=== PATIENT | female | born 1975 | race Caucasian/White ===

== ENCOUNTER 2017-06-09 14:04 | Emergency (ER) | payer OTHER ==
[~2017-06-09] VITALS: Ht 172.7 cm; Wt 88.9 kg
[~2017-06-09 14:04] MED LIST: Docusate Sod/Senna PO; IBUP600 PO; PRENTAB16
--- NOTE | 2017-06-09 15:06 | PD ---
HPI Chief Complaint Abdominal pain Date Seen: Jun 09, 2017 Time Seen: 14:59 Travel History International Travel<30 Days: No Contact w/Intl Traveler<30Days: No Known Affected Area: No History of Present Illness HPI 42-year-old 3 para 2 at 28+ weeks gestation who comes today with several day history of upper abdominal pain. She has felt at times that this might be gas pain but was unrelieved by Tums and bland diet. She has not had any nausea or vomiting. The pain occurs randomly and lasts for a few seconds to a couple of minutes. She does not equate this to contraction pain. No dysuria hematuria or frequency. No change in her bowel habits. She has noticed a slight postprandial component to this pain. She has no acholic stools. No swelling, headache or visual change. History Past Medical History Medical History: Denies Significant Hx Obstetric History Obstetric History 2 prior term vaginal deliveries without complication Current care with Dr. Meadows has been uncomplicated. Past Surgical History Surgical History: No Previous Surgery Family History Family History: Negative Social History Alcohol Use: No Tobacco Use: No Substance Abuse: No Allergies-Medications (Allergen,Severity, Reaction): Coded Allergies: No Known Allergies (Verified , 08/30/15) Home Meds Reported Medications Vit W/ Ferrous Fumara ( Complete) Complete Tab 11/18/13 Discontinued Scripts [Docusate Sod/Senna] 1 TAB TAB No Conflict Check, 2 TAB PO Q12H Y for CONSTIPATION, #20 TAB 0 Refills Prov:Mylene Grimaldo 11/21/13 Ibuprofen (Motrin 600 Mg Tab) 600 Mg Tab, 600 MG PO Q6H Y for CRAMPING, #30 TAB 0 Refills Prov:Mylene Grimaldo 11/21/13 Review of Systems Except as stated in HPI: all other systems reviewed are Neg Physical Exam Narrative GENERAL: Well-nourished, well-developed patient. SKIN: Warm and dry. HEAD: Normocephalic and atraumatic. EYES: No scleral icterus. No injection or drainage. ENT: No nasal drainage noted. Mucous membranes pink. Airway patent. NECK: Supple, trachea midline. No JVD. ABDOMEN/GI: Abdomen soft, non-tender, bowel sounds present, no rebound, no guarding Gravid to [-] weeks size Fundal Height: [27-] GENITOURINARY: External Genitalia: intact and normal in appearance BUS glands: [Negative-] Cervix: [-] Dilatation: [Closed-] Effacement: [-Long] Station: [High-] Presentation: [-] Membranes: [intact ] Uterine Contractions: [None-] FHT's: Category: [-1] Baseline: [-] Reactive: [-] Variability: [-] Decels: [-] EXTREMITIES: No cyanosis or edema. BACK: Nontender without obvious deformity. No CVA tenderness. NEUROLOGICAL: Awake and alert. Motor and sensory grossly within normal limits. Five out of 5 muscle strength in all muscle groups. Normal speech. Data Data Vital Signs Reviewed: Yes MDM Medical Record Reviewed: Yes Narrative Course / MDM Assessment:-42year-old multipara at 28+ weeks gestation with probable mild gastritis Plan: Discussed relief measures including [id number] H2 blockers. We also discussed possibility of gallbladder related symptoms and low-fat diet was recommended. Warning signs for follow-up were reviewed. Diagnosis Diagnosis: Primary Impression: 28 weeks gestation of Additional Impression: Gastritis Disposition: 01 DISCHARGE HOME Condition: Good Sam Neuamnn MD Jun 09, 2017 15:06
== END 2017-06-09 15:26 | disposition home or self-care (01) ==
LOC: HOBED 14:04
DX: O99.613 Diseases of the digestive system complicating pregnancy, third trimester (principal); K29.70 Gastritis, unspecified, without bleeding; Z3A.28 28 weeks gestation of pregnancy
CPT/HCPCS: 59025

== ENCOUNTER 2017-07-30 09:26 | Emergency (ER) | payer OTHER ==
[~2017-07-30 09:26] MED LIST changes: -Docusate Sod/Senna PO; -IBUP600 PO
[2017-07-30 10:30] LABS: HEMATOCRIT 34.7 % (35.0-46.0); HEMOGLOBIN 12.1 GM/DL (11.6-15.3); MEAN CELL VOLUME 89.4 FL (80.0-100.0); MEAN CORPUSCULAR HEMOGLOBIN 31.3 PG (27.0-34.0); MEAN PLATELET VOLUME 9.5 FL (7.0-11.0); PLATELET COUNT 160 TH/MM3 (150-450); RED BLOOD COUNT 3.88 MIL/MM3 (4.00-5.30); RED CELL DISTRIBUTION WIDTH 12.6 % (11.6-17.2); WHITE BLOOD COUNT 6.9 TH/MM3 (4.0-11.0)
--- NOTE | 2017-07-30 10:48 | HHI.DCPOC ---
Discharge Care Plan Report Symptoms to Your Doctor -Temperature above 100.5 degrees -Redness, of incision or excessive or foul smelling drainage -Unusual pain or calf pain -Increased vaginal bleeding -Painful or difficulty urinating -Feelings of extreme sadness or anxiety after 2 weeks Goals to Promote Your Health * To prevent worsening of your condition and complications * To maintain your health at the optimal level Directions to Meet Your Goals Take your medications as prescribed Follow your dietary instruction Follow activity as directed Ensure plenty of rest for recovery Drink fluids for hydration Keep your appointments as scheduled Take your immunizations and boosters as scheduled If your symptoms worsen call your PCP, if no PCP go to Urgent Care Center or Emergency Room Smoking is Dangerous to Your Health. Avoid second hand smoke Call the 24-hour crisis hotline for domestic abuse at Jahaira Meadows MD July 30, 2017 10:48
[2017-07-30 10:53] LABS: BACTERIA, URINE RARE /hpf; BILIRUBIN, URINE NEG (NEG); BLOOD, URINE TRACE (NEG); GLUCOSE,URINE NEG (NEG); KETONE, URINE NEG (NEG); NITRITE,URINE NEG (NEG); SQUAMOUS EPITHELIAL CELL URINE 11 /hpf (0-5); URINE COLOR YELLOW (YELLW/STRAW); URINE LEUKOCYTE ESTERASE LARGE (NEG)
[2017-07-30 10:58] LABS: ALT (GPT) 15 U/L (10-53); AST (GOT) 14 U/L (15-37); BICARBONATE 22.6 MEQ/L (21.0-32.0); BLOOD UREA NITROGEN 6 MG/DL (7-18); CALCIUM 8.4 MG/DL (8.5-10.1); CHLORIDE 105 MEQ/L (98-107); CREATININE 0.57 MG/DL (0.50-1.00); GLOMERULAR FILTRATION RATE 117 ML/MIN (>89); GLUCOSE,RANDOM 79 MG/DL (74-106); SODIUM (NA) 137 MEQ/L (136-145)
[2017-07-30 11:00] LABS: ALKALINE PHOSPHATASE 120 U/L (45-117); TOTAL BILIRUBIN ADULT 0.3 MG/DL (0.2-1.0); TOTAL PROTEIN 6.8 GM/DL (6.4-8.2)
--- NOTE | 2017-07-30 11:14 | PD.OB.ANTE ---
Objective Lab & Micro Results Test 07/30/17 09:50 07/30/17 09:59 Urine Color YELLOW Urine Turbidity HAZY Urine pH 7.0 Urine Specific [place] 1.013 Urine Protein NEG mg/dL Urine Glucose (UA) NEG mg/dL Urine Ketones NEG mg/dL Urine Occult Blood TRACE Urine Nitrite NEG Urine Bilirubin NEG Urine Urobilinogen LESS THAN 2.0 MG/DL Urine Leukocyte Esterase LARGE Urine WBC 11 /hpf Urine Squamous Epithelial Cells 11 /hpf Urine Bacteria RARE /hpf Microscopic Urinalysis Comment CULTURE INDICATED Urine Random Creatinine 78 MG/DL Urine Random Total Protein 20 MG/DL Urine Protein/Creatinine Ratio 0.26 White Blood Count 6.9 TH/MM3 Red Blood Count 3.88 MIL/MM3 Hemoglobin 12.1 GM/DL Hematocrit 34.7 % Mean Corpuscular Volume 89.4 FL Mean Corpuscular Hemoglobin 31.3 PG Mean Corpuscular Hemoglobin Concent 35.0 % Red Cell Distribution Width 12.6 % Platelet Count 160 TH/MM3 Mean Platelet Volume 9.5 FL Blood Urea Nitrogen 6 MG/DL Creatinine 0.57 MG/DL Random Glucose 79 MG/DL Total Protein 6.8 GM/DL Albumin 3.0 GM/DL Calcium Level 8.4 MG/DL Uric Acid 2.9 MG/DL Alkaline Phosphatase 120 U/L Aspartate Amino Transf (AST/SGOT) 14 U/L Alanine Aminotransferase (ALT/SGPT) 15 U/L Total Bilirubin 0.3 MG/DL Sodium Level 137 MEQ/L Potassium Level 3.9 MEQ/L Chloride Level 105 MEQ/L Carbon Dioxide Level 22.6 MEQ/L Anion Gap 9 MEQ/L Estimat Glomerular Filtration Rate 117 ML/MIN Date/Time Source Procedure Growth Status 07/30/17 09:50 Urine Clean Catch Urine Culture Pending Received Physical Exam GENERAL: Well-nourished, well-developed patient. CARDIOVASCULAR: Regular rate and rhythm without murmurs, gallops, or rubs. RESPIRATORY: Breath sounds equal bilaterally. No accessory muscle use. ABDOMEN/GI: Abdomen soft, non-tender. Fundus: [-] GENITOURINARY: External Genitalia: intact and normal in appearance Cervix: [-] Dilatation: [-] Effacement: [-] Station: [-] Presentation: [-] Membranes: [-] Uterine Contractions: [-] FHT's: Category: [-] Baseline: [-] Reactive: [-] Variability: [-] Decels: [-] EXTREMITIES: No cyanosis or edema, non-tender, without signs of DVT. Assessment and Plan Assessment and Plan Impression: 35+ week IUP with mild elevation in BP 8/8 BPP in office [place] normal lfts normal strip today reactive MILD GESTATIONAL HYPERTENSION SAFE FOR DISCHARGE HOME NOW RETURN TO OFFICE MONDAY Jahaira Meadows MD July 30, 2017 11:14
--- NOTE | 2017-07-30 19:15 | PD ---
HPI Travel History International Travel<30 Days: No Contact w/Intl Traveler<30Days: No Known Affected Area: No Allergies-Medications (Allergen,Severity, Reaction): Coded Allergies: No Known Allergies (Verified , 08/30/15) Home Meds Reported Medications Vit W/ Ferrous Fumara ( Complete) Complete Tab 11/18/13 Data Data Orders Orders Vital Signs (Adult) .ON ADMISSION (07/30/17 10:10) ^ Labor Status (07/30/17 10:10) Urinalysis - C+S If Indicated (07/30/17 10:10) ^ Non Stress Test (07/30/17 10:10) Cbc No Diff, Includes Plts (07/30/17 10:10) Comprehensive Metabolic Panel (07/30/17 10:10) Uric Acid (07/30/17 10:10) Protein Creat Ratio, Random Ur (07/30/17 10:10) Attending Discharge Order (07/30/17 ) Urine Culture (07/30/17 09:50) Labs Laboratory Tests Test 07/30/17 09:50 07/30/17 09:59 Urine Color YELLOW Urine Turbidity HAZY Urine pH 7.0 Urine Specific [place] 1.013 Urine Protein NEG Urine Glucose (UA) NEG Urine Ketones NEG Urine Occult Blood TRACE Urine Nitrite NEG Urine Bilirubin NEG Urine Urobilinogen LESS THAN 2.0 Urine Leukocyte Esterase LARGE Urine WBC 11 Urine Squamous Epithelial Cells 11 Urine Bacteria RARE Microscopic Urinalysis Comment CULTURE INDICATED Urine Random Creatinine 78 Urine Random Total Protein 20 Urine Protein/Creatinine Ratio 0.26 White Blood Count 6.9 Red Blood Count 3.88 Hemoglobin 12.1 Hematocrit 34.7 Mean Corpuscular Volume 89.4 Mean Corpuscular Hemoglobin 31.3 Mean Corpuscular Hemoglobin Concent 35.0 Red Cell Distribution Width 12.6 Platelet Count 160 Mean Platelet Volume 9.5 Blood Urea Nitrogen 6 Creatinine 0.57 Random Glucose 79 Total Protein 6.8 Albumin 3.0 Calcium Level 8.4 Uric Acid 2.9 Alkaline Phosphatase 120 Aspartate Amino Transf (AST/SGOT) 14 Alanine Aminotransferase (ALT/SGPT) 15 Total Bilirubin 0.3 Sodium Level 137 Potassium Level 3.9 Chloride Level 105 Carbon Dioxide Level 22.6 Anion Gap 9 Estimat Glomerular Filtration Rate 117 Date/Time Source Procedure Growth Status 07/30/17 09:50 Urine Clean Catch Urine Culture Pending Received MDM Plan per Dr. Meadows, courtesy labs placed Diagnosis Diagnosis: Primary Impression: Pre-eclampsia affecting , antepartum Ruled Out: Reactive NST Disposition: 01 DISCHARGE HOME Condition: Stable Patient Instructions: General Instructions, Having Your Baby: The Labor Process (GEN), Preeclampsia (ED), Movement (ED) Additional Instructions: Follow up with Dr. Meadows on Monday08/01/17 Departure Forms: Tests/Procedures Juliette Nunez MD July 30, 2017 19:15
== END 2017-07-30 12:30 | disposition home or self-care (01) ==
LOC: HOBED 09:26
DX: O14.90 Unspecified pre-eclampsia, unspecified trimester (principal); R82.71 Bacteriuria; Z3A.00 Weeks of gestation of pregnancy not specified
CPT/HCPCS: 36415; 59025; 80053; 81001; 82570; 84156; 84550; 85027; 87086

== ENCOUNTER 2017-08-01 18:00 | Inpatient (IN) | payer OTHER ==
[~2017-08-01] VITALS: Ht 172.7 cm; Wt 91.0 kg
[2017-08-01] MEDS ORDERED: NS 1000 ML IV PRN (19:45)
[2017-08-01] MEDS ORDERED: NS 500 ML BOLUS IV PRN (19:45)
[2017-08-01] MEDS ORDERED: MINERAL OIL 10 ML VIAL TOPICAL PRN (19:45)
[2017-08-01] MEDS ORDERED: CITRIC ACID-SODIUM CITRATE LIQ 30 ML UDC PO SCH (19:45)
[2017-08-01] MEDS ORDERED: ONDANSETRON ODT 4 MG TAB PO PRN (19:45)
[2017-08-01] MEDS ORDERED: LIDOCAINE HCL 1% 50 ML VIAL INFIL PRN (19:45)
[2017-08-01] MEDS ORDERED: LACTATED RINGER'S 1000 ML BOLUS IV PRN (19:45)
[2017-08-01] MEDS ORDERED: LIDOCAINE HCL 1% 50 ML VIAL I-DERMAL PRN (19:45)
[2017-08-01] MEDS ORDERED: LACTATED RINGER'S 1000 ML INJ 1,000 ML IV SCH (20:00)
[2017-08-01] MEDS ORDERED: OXYTOCIN 30 UNITS 500ML PREMIX IV ONE (20:00)
[2017-08-01] MEDS ORDERED: DINOPROSTONE 10 MG INSERT-LEAVE FOR 12 HOURS VAGINAL ONE (20:30)
[2017-08-01] MEDS: LACTATED RINGER'S 1000 ML IV SCH (20:34)
[2017-08-01 20:56] LABS: BASOPHIL % 0.2 % (0.0-2.0); EOSINOPHIL # 0.1 TH/MM3 (0-0.4); EOSINOPHIL % 0.8 % (0.0-4.0); HEMATOCRIT 36.2 % (35.0-46.0); HEMOGLOBIN 12.5 GM/DL (11.6-15.3); LYMPH % 24.8 % (9.0-44.0); LYMPHOCYTE # 2.1 TH/MM3 (1.0-4.8); MEAN CELL VOLUME 89.8 FL (80.0-100.0); MEAN CORPUSCULAR HEMOGLOBIN 31.2 PG (27.0-34.0); MEAN CORPUSCULAR HGB CONC 34.7 % (32.0-36.0); MEAN PLATELET VOLUME 9.7 FL (7.0-11.0); MONO % 4.8 % (0.0-8.0); MONOCYTE # 0.4 TH/MM3 (0-0.9); NEUT % 69.4 % (16.0-70.0); PLATELET COUNT 175 TH/MM3 (150-450); RED BLOOD COUNT 4.03 MIL/MM3 (4.00-5.30); RED CELL DISTRIBUTION WIDTH 12.3 % (11.6-17.2); WHITE BLOOD COUNT 8.6 TH/MM3 (4.0-11.0)
[2017-08-01] MEDS ORDERED: diphenhydrAMINE HCL 25 MG CAP PO PRN (21:00)
[2017-08-01 21:04] LABS: BILIRUBIN, URINE NEG (NEG); BLOOD, URINE MOD (NEG); GLUCOSE,URINE NEG (NEG); KETONE, URINE 10 mg/dL (NEG); MUCUS URINE FEW /lpf (OCC); NITRITE,URINE NEG (NEG); PH, URINE 5.5 (5.0-8.5); SQUAMOUS EPITHELIAL CELL URINE 2 /hpf (0-5); URINE COLOR LIGHT-YELLOW (YELLW/STRAW); URINE LEUKOCYTE ESTERASE MOD (NEG)
[2017-08-01 22:04] LABS: AST (GOT) 17 U/L (15-37); BICARBONATE 23.4 MEQ/L (21.0-32.0); BLOOD UREA NITROGEN 9 MG/DL (7-18); CALCIUM 8.9 MG/DL (8.5-10.1); CHLORIDE 103 MEQ/L (98-107); CREATININE 0.78 MG/DL (0.50-1.00); GLOMERULAR FILTRATION RATE 81 ML/MIN (>89); GLUCOSE,RANDOM 127 MG/DL (74-106); SODIUM (NA) 135 MEQ/L (136-145)
[2017-08-01 22:05] LABS: ALT (GPT) 16 U/L (10-53)
[2017-08-01 22:07] LABS: ALKALINE PHOSPHATASE 127 U/L (45-117); TOTAL BILIRUBIN ADULT 0.3 MG/DL (0.2-1.0); TOTAL PROTEIN 6.7 GM/DL (6.4-8.2)
[2017-08-02] MEDS ORDERED: ZANT150T2 PO (03:06)
[2017-08-02] MEDS ORDERED: PREN1TAB30 PO (03:06)
--- NOTE | 2017-08-02 07:46 | HHI.HP ---
HPI Chief Complaint 36 03/12 with gestation hypertension; possible pre eclampsia without severe features Date Seen: August 02, 2017 Time Seen: 07:39 Travel History International Travel<30 Days: No Contact w/Intl Traveler<30Days: No Known Affected Area: No History of Present Illness HPI 42 yo mwf with LMP 11/23/16 and EDC 08/30/17 sent to [facility] last evening for cervidil due to persistent elevation in BP. Highest today at 150/100. Had headaches today and emesis in the am and reports visual spots. surveillance entirely reassuring with GFM. No leaking or bleeding. No UCs yet. PNC uneventful She is proven to 9 pounds 2 ounces. O=/ Hgb11.2; glucola 121/ rubella and VZ immune; serology negative. NIPT reassuring Weeks Gestation: 36 Para: 2 : 3 History Past Medical History Medical History: Denies Significant Hx Obstetric History Obstetric History two term SVDs with second child 9 pounds 2 ounces Past Surgical History Surgical History: No Previous Surgery Family History Family History: Negative Social History Alcohol Use: No Tobacco Use: No Substance Abuse: No Allergies-Medications (Allergen,Severity, Reaction): Coded Allergies: No Known Allergies (Verified , 08/30/15) Home Meds Reported Medications Ranitidine (Zantac) 150 Mg Tab, 150 MG PO DAILY for Reduce Stomach Acid, #30 TAB 0 Refills 08/02/17 Vit W/ Ferrous Fumara ( Vitamin 27-0.8 mg) 27 Mg Iron-800 Mcg Tab, PO DAILY 08/02/17 Vit W/ Ferrous Fumara ( Complete) Complete Tab 11/18/13 Review of Systems Eyes: Blurred Vision HENT: Headaches Gastrointestinal: Nausea, Vomiting Physical Exam Narrative GENERAL: Well-nourished, well-developed patient. Very edematous SKIN: Warm and dry. HEAD: Normocephalic and atraumatic. EYES: No scleral icterus. No injection or drainage. ENT: No nasal drainage noted. Mucous membranes pink. Airway patent. NECK: Supple, trachea midline. No JVD. CARDIOVASCULAR: Regular rate and rhythm without murmurs, gallops, or rubs. RESPIRATORY: Breath sounds equal bilaterally. No accessory muscle use. BREASTS: Bilateral exam showed no masses , no retractions, no nipple discharge. ABDOMEN/GI: Abdomen soft, non-tender, bowel sounds present, no rebound, no guarding FH 37 cervix posterior. long, finger tip before and after 12 hours of cervidil EXTREMITIES: No cyanosis. 2+ edema. BACK: Nontender without obvious deformity. No CVA tenderness. NEUROLOGICAL: Awake and alert. Motor and sensory grossly within normal limits. Five out of 5 muscle strength in all muscle groups. Normal speech. Caprini VTE Risk Assessment Caprini VTE Risk Assessment: No/Low Risk (score <= 1) Caprini Risk Assessment Model Point Value = 1 Point Value = 2 Point Value = 3 Point Value = 5 Age 41-60 Minor surgery BMI > 25 kg/m2 Swollen legs Varicose veins or History of unexplained or recurrent spontaneous Oral contraceptives or hormone replacement Sepsis (< 1 month) Serious lung disease, including pneumonia (< 1 month) Abnormal pulmonary function Acute myocardial infarction Congestive heart failure (< 1 month) History of inflammatory bowel disease Medical patient at bed rest Age 61-74 Arthroscopic surgery Major open surgery (> 45 min) Laparoscopic surgery (> 45 min) Malignancy Confined to bed (> 72 hours) Immobilizing plaster cast Central venous access Age >= 75 History of VTE Family history of VTE Factor V Leiden Prothrombin [id number] Lupus anticoagulant Anticardiolipin antibodies Elevated serum homocysteine Heparin-induced thrombocytopenia Other congenital or acquired thrombophilia Stroke (< 1 month) Elective arthroplasty Hip, pelvis, or leg fracture Acute spinal cord injury (< 1 month) Prophylaxis Regimen Total Risk Factor Score Risk Level Prophylaxis Regimen 0-1 Low Early ambulation 2 Moderate Order ONE of the following: *Sequential Compression Device (SCD) *Heparin 5000 units SQ BID 3-4 Higher Order ONE of the following medications: *Heparin 5000 units SQ TID *Enoxaparin/Lovenox 40 mg SQ daily (WT < 150 kg, CrCl > 30 mL/min) *Enoxaparin/Lovenox 30 mg SQ daily (WT < 150 kg, CrCl > 10-29 mL/min) *Enoxaparin/Lovenox 30 mg SQ BID (WT < 150 kg, CrCl > 30 mL/min) AND/OR *Sequential Compression Device (SCD) 5 or more Highest Order ONE of the following medications: *Heparin 5000 units SQ TID (Preferred with Epidurals) *Enoxaparin/Lovenox 40 mg SQ daily (WT < 150 kg, CrCl > 30 mL/min) *Enoxaparin/Lovenox 30 mg SQ daily (WT < 150 kg, CrCl > 10-29 mL/min) *Enoxaparin/Lovenox 30 mg SQ BID (WT < 150 kg, CrCl > 30 mL/min) AND *Sequential Compression Device (SCD) Data Data Orders Orders Diet Regular Basic (08/01/17 Dinner) Admit To Inpatient (08/01/17 ) ^ Labor Induction (08/01/17 19:17) ^ Vaginal Insert (08/01/17 19:17) ^ Vaginal Lavage (08/01/17 19:17) Heart (08/01/17 19:17) Admit To Inpatient (08/01/17 ) Vital Signs (Adult) .Per protocol (08/01/17 19:18) Heart (08/01/17 19:18) Amnioinfusion (08/01/17 19:18) Urinary Catheter Management .ONCE (08/01/17 19:18) Complete Blood Count With Diff (08/01/17 19:18) Hold Clot (08/01/17 19:18) Abo/Rh Blood Type (08/01/17 19:18) Urinalysis - C+S If Indicated (08/01/17 19:18) Ob/Psych Drug Screen, Urine (08/01/17 19:18) Resp Oxygen Non Rebreathe Mask (08/01/17 ) ^ Epidural / Intrathecal Infus (08/01/17 19:18) Dinoprostone Vag Insert (Cervidil Vag In (08/01/17 20:30) Lactated Ringer's 1000 Ml Inj (Lr 1000 M (08/01/17 20:00) Lactated Ringer's 1000 Ml Inj (Lr 1000 M (08/01/17 20:00) Lactated Ringer's 1000 Ml Inj (Lr 1000 M (08/01/17 19:45) Sodium Chlorid 0.9% 500 Ml Inj (Ns 500 M (08/01/17 19:45) Sodium Chlor 0.9% 1000 Ml Inj (Ns 1000 M (08/01/17 19:45) Lidocaine 1% Inj (50 Ml) (Xylocaine 1% I (08/01/17 19:45) Citric Acid-Sodium Citrate Liq (Bicitra (08/01/17 19:45) Ondansetron Odt (Zofran Odt) (08/01/17 19:45) Fentanyl Inj (Fentanyl Inj) (08/01/17 19:45) Fentanyl Inj (Fentanyl Inj) (08/01/17 19:45) Oxytocin 30 Units-500ml Premix (Pitocin (08/01/17 20:00) Lidocaine 1% Inj (50 Ml) (Xylocaine 1% I (08/01/17 19:45) Light Mineral Oil (Muri-Lube Oil) (08/01/17 19:45) Comprehensive Metabolic Panel (08/01/17 21:21) Diphenhydramine (Benadryl) (08/01/17 21:00) Labs Laboratory Tests Test 08/01/17 18:30 08/01/17 20:20 Urine Color LIGHT-YELLOW Urine Turbidity CLEAR Urine pH 5.5 Urine Specific [place] 1.006 Urine Protein NEG Urine Glucose (UA) NEG Urine Ketones 10 Urine Occult Blood MOD Urine Nitrite NEG Urine Bilirubin NEG Urine Urobilinogen LESS THAN 2.0 Urine Leukocyte Esterase MOD Urine RBC LESS THAN 1 Urine WBC 3 Urine Squamous Epithelial Cells 2 Urine Mucus FEW Microscopic Urinalysis Comment CULT NOT INDICATED Urine Opiates Screen NEG Urine Barbiturates Screen NEG Urine Amphetamines Screen NEG Urine Benzodiazepines Screen NEG Urine Cocaine Screen NEG Urine Cannabinoids Screen NEG White Blood Count 8.6 Red Blood Count 4.03 Hemoglobin 12.5 Hematocrit 36.2 Mean Corpuscular Volume 89.8 Mean Corpuscular Hemoglobin 31.2 Mean Corpuscular Hemoglobin Concent 34.7 Red Cell Distribution Width 12.3 Platelet Count 175 Mean Platelet Volume 9.7 Neutrophils (%) (Auto) 69.4 Lymphocytes (%) (Auto) 24.8 Monocytes (%) (Auto) 4.8 Eosinophils (%) (Auto) 0.8 Basophils (%) (Auto) 0.2 Neutrophils # (Auto) 6.0 Lymphocytes # (Auto) 2.1 Monocytes # (Auto) 0.4 Eosinophils # (Auto) 0.1 Basophils # (Auto) 0.0 CBC Comment DIFF FINAL Differential Comment Blood Urea Nitrogen 9 Creatinine 0.78 Random Glucose 127 Total Protein 6.7 Albumin 3.0 Calcium Level 8.9 Alkaline Phosphatase 127 Aspartate Amino Transf (AST/SGOT) 17 Alanine Aminotransferase (ALT/SGPT) 16 Total Bilirubin 0.3 Sodium Level 135 Potassium Level 3.2 Chloride Level 103 Carbon Dioxide Level 23.4 Anion Gap 9 Estimat Glomerular Filtration Rate 81 Assessment/Plan Assessment and Plan BP this ami 130.90 and feels well will allow shower and breakfast and then oral cytotec with re evaluation in 6 hours anticipate once cervix ripened and pre eclampsia is not severe in nature Jahaira Meadows MD August 02, 2017 07:46
[2017-08-02] MEDS ORDERED: MISOPROSTOL 100 MCG TAB PO ONE (08:00)
[2017-08-02] MEDS ORDERED: MISOPROSTOL 25 MCG TAB PO ONE ×2 (09:15→14:00)
[2017-08-02] MEDS: LACTATED RINGER'S 1000 ML IV SCH ×2 (13:57→19:37)
--- NOTE | 2017-08-02 18:47 | PD.LABORPN ---
Subjective Subjective has been comfortable throughout day with oral/buccal cytotech with only minor cervical change (now thinner and 1 cm and more anterior)\ mild FLORES no Nausea or vomiting BPs 130s/80s labs reassuring strip category 1 Objective Objective Pelvic Exam: Cervix: [-] Dilatation: [-] Effacement: [-] Station: [-] Presentation: [-] Membranes: [intact or ruptured] Uterine Contractions: [-] FHT's: Category: [-] Baseline: [-] Reactive: [-] Variability: [-] Decels: [-] Weeks Gestation: 36 Assessment/Plan Assessment and Plan anticipate cervical change to occur during evening and night with buccal cytotec will rupture when able to anticipate Jahaira Meadows MD August 02, 2017 18:47
[2017-08-02] MEDS ORDERED: MISOPROSTOL 100 MCG TAB PO SCH (20:00)
[2017-08-02] MEDS ORDERED: ZOLPIDEM TARTRATE 5 MG TAB PO SCH (21:00)
[2017-08-03] MEDS ORDERED: MISOPROSTOL 100 MCG TAB PO SCH ×2
--- NOTE | 2017-08-03 00:59 | PD.LABORPN ---
Subjective Subjective resting comfortably while continuing buccal cytotec bedside sono confirms cephalic now 1-2 cm 40% effaced and anterior arom clear strip reactive mild ucs on strip. continue cytotec for now. Objective Objective Pelvic Exam: Cervix: [-] Dilatation: [-] Effacement: [-] Station: [-] Presentation: [-] Membranes: [intact or ruptured] Uterine Contractions: [-] FHT's: Category: [-] Baseline: [-] Reactive: [-] Variability: [-] Decels: [-] Weeks Gestation: 36 Jahaira Meadows MD August 03, 2017 00:59
[2017-08-03] MEDS: MISOPROSTOL 25 MCG TAB OTHER SCH ×5 (01:01→16:00)
[2017-08-03] MEDS: LACTATED RINGER'S 1000 ML IV SCH ×2 (05:25→09:29)
[2017-08-03] MEDS ORDERED: OXYTOCIN 30 UNITS/NS 500ML PREMIX IV PRN (07:15)
--- NOTE | 2017-08-03 11:27 | PD.LABORPN ---
Subjective Subjective pain 5/10 on birthing ball Objective Objective Pelvic Exam: 3/75%/-1 anterior strip category one UCs every 3 minutes Weeks Gestation: 36 Assessment/Plan Assessment and Plan anticipate Jahaira Meadows MD August 03, 2017 11:27
[2017-08-03] MEDS ORDERED: DEXAMETHASONE SOD PHOS 4 MG/ML VIAL IV ONE (12:00)
[2017-08-03] MEDS ORDERED: LIDOCAINE 2%/EPINEPHrine PF 1:200,000 20ML SDV OTHER ONE (12:00)
[2017-08-03] MEDS ORDERED: PHENYLEPH/NS 1000 MCG/10 ML SYR IV ONE (12:00)
[2017-08-03] MEDS ORDERED: ONDANSETRON HCL 4 MG/2 ML VIAL IV ONE (12:00)
[2017-08-03] MEDS ORDERED: ceFAZolin INJ 1,000 MG VIAL IV ONE (12:00)
[2017-08-03] MEDS ORDERED: OXYTOCIN 10 UNIT/ML AMP IV ONE (12:00)
[2017-08-03] MEDS ORDERED: fentaNYL 2MCG-BUPIV 0.125% INJ 150 ML EPIDURAL ONE (12:49)
[2017-08-03] MEDS ORDERED: ePHEDrine/NS 25 MG/5 ML SYRINGE ONE (12:50)
[2017-08-03] MEDS ORDERED: LIDOCAINE 1.5%/EPINEPHrine 1:200,000 PF 5 ML AMP ONE (13:13)
[2017-08-03] MEDS ORDERED: DO NOT ADMINISTER ANTICOAGULANTS PRN (14:30)
[2017-08-03] MEDS ORDERED: ePHEDrine/NS 25 MG/5 ML SYRINGE IV PUSH PRN (14:30)
[2017-08-03] MEDS ORDERED: fentaNYL 2MCG-BUPIV 0.125% 150 ML EPIDURAL PRN (14:30)
[2017-08-03] MEDS ORDERED: NO SYSTEM NARCOTICS PRN (14:30)
[2017-08-03] MEDS ORDERED: ACETAMINOPHEN 325 MG TAB PO PRN ×2 (17:45→21:30)
[2017-08-03] MEDS ORDERED: ceFAZolin 1,000 MG/NS 100 ML IV SCH ×2 (18:00)
[2017-08-03] MEDS ORDERED: MORPHINE SULFATE PF 5 MG/10 ML VIAL ONE (21:10)
--- NOTE | 2017-08-03 21:12 | PD.LABORPN ---
Subjective Subjective resting quietly epidural working well O2 on strip has lost BTBV and accelerations no decelerations UCs appear and palpate adequate since noon with no descent and minimal cervical change low grade temp on Ancef now Objective Vital Signs Vital Signs Date Time Temp Pulse Resp B/P (MAP) Pulse Ox O2 Delivery O2 Flow Rate FiO2 08/03/17 19:00 18 08/03/17 16:13 16 Objective Weeks Gestation: 36 Assessment/Plan Assessment and Plan reviewed lack of descent oncoming infection tired baby Will proceed with section risks benefits and expectations discussed Jahaira Meadows MD August 03, 2017 21:12
[2017-08-03] MEDS ORDERED: ACETAMINOPHEN 1000 MG/100 ML 100 ML IV ONE ×2 (21:30→22:07)
[2017-08-03] MEDS ORDERED: SODIUM CHLORIDE 0.9% FLUSH 10 ML FLUSH IV FLUSH PRN (21:30)
[2017-08-03] MEDS ORDERED: OXYTOCIN 30 UNITS-500ML PREMIX 500 ML IV ONE (21:30)
[2017-08-03] MEDS ORDERED: ZOLPIDEM TARTRATE 5 MG TAB PO PRN (21:30)
[2017-08-03] MEDS ORDERED: SIMETHICONE 80 MG CHEWABLE TAB PO PRN (21:30)
[2017-08-03] MEDS ORDERED: LIDOCAINE 1.5%/EPINEPHrine 1:200,000 PF SOLN 10ML SDV ONE (21:43)
[2017-08-03] MEDS ORDERED: ONDANSETRON ODT 4 MG TAB PO PRN (21:45)
[2017-08-03] MEDS ORDERED: fentaNYL CITRATE 250 MCG/5 ML AMP ONE (22:08)
[2017-08-03] MEDS ORDERED: ceFAZolin 2 GM PREMIX 50 ML IV SCH (22:15)
--- NOTE | 2017-08-03 22:28 | PD.OB.DELI ---
Procedure Note Section Procedure Pre Op Diagnosis: (1) Pre-eclampsia affecting , antepartum Post Op Diagnosis: (1) Failure of descent in labor, delivered, current hospitalization (2) delivery delivered Performed by Jahaira Meadows Procedure: Primary Low Transverse Sec Indication for delivery: malposition Informed consent obtained: For anesthesia, For procedure Confirmed correct: Patient, Procedure, Site, Time-out taken Anesthesia: Epidural Medication prior to procedure: As documented in eMAR Monitoring during procedure: Blood pressure monitoring, campus monitor Urinary catheter: Inserted using sterile technique, To dependent drainage Sterile preparation: Duraprep, In usual fashion, With 2% chlorexidine ( Hibiclens) Position: Supine with wedge to right side Operative Features Skin Incision: Pfannenstiel Uterine Incision: Low transverse w/knife / blunt ext Membranes Ruptured: Artificially Presentation: Occiput anterior, Occiput posterior, Vertex Delivery date: August 03, 2017 Delivery time: 22:27 Delivery of : Assisted : Male One Minute : 8 Five Minute : 8 Weight: 6 14 Status of infant: Viable, Cord blood, Umbilical cord, Nursery present Placenta delivered: Intact Medications: Antibiotics, Oxytocin Estimated blood loss: 400 Procedure tolerated: Well Maternal Condition: Stable (dictated) Condition: Stable Jahaira Meadows MD August 03, 2017 22:28
[2017-08-03] MEDS ORDERED: CITRIC ACID-SODIUM CITRATE LIQ 30 ML UDC PO SCH (22:45)
--- NOTE | 2017-08-03 23:02 | MP ---
cc: Jahaira Meadows MD, Pamela P MD DATE OF OPERATION: 08/03/2017 PREOPERATIVE DIAGNOSIS: Thirty six weeks, brought in for cervical ripening and induction for preeclampsia without severe features, trial of labor with lack of descent and nonreassuring strip. POSTOPERATIVE DIAGNOSIS: Thirty six weeks, brought in for cervical ripening and induction for preeclampsia without severe features, trial of labor with lack of descent and nonreassuring strip. Delivery, baby ROP. PROCEDURE PERFORMED: Primary low transverse segment section. ANESTHESIA: Epidural with Duramorph. SURGEON: Jahaira Meadows MD ANESTHESIA ASSISTANT: Hospital staff. FINDINGS: A male infant was delivered from OP/OT position with no nuchal cord. He weighed 6 pounds 13 ounces. Placenta was anterior and low lying. Infant looked like he may have had some weight loss in the last week or so with a small abdominal circumference and a larger than average head. He had a good cry on the abdomen, but then required some oxygen and is going to be watched in the NICU overnight. ESTIMATED BLOOD LOSS: Average. COUNTS: Sponge, instrument and needle counts were correct. Mom and baby are doing well. DESCRIPTION OF PROCEDURE: The patient was recognized to have failure of descent with only minimal foreign exchange position clerk significant hours. Active labor really did not start until hospital day 3, after Cervidil and an entire day of Cytotec. Membranes were ruptured at approximately 1 a.m. on the . She was started on antibiotics around 6 p.m. and baby began to lose variability and while, not having any decels did have some lack of accelerations. Final check at 9 o'clock revealed no descent throughout the day. She was dilated to about 5 cm. Baby was definitely asynclitic and not well applied. The decision was made to proceed with section. She was taken to the back. Her epidural was reinforced. She had a little hot spot on the right that was injected with lidocaine superficially. This was after she had been prepped and draped and a timeout had been performed. She had already had a Rapp catheter and sequential stockings were placed and she was given another gram of Ancef, even though she had been on it already. A Pfannenstiel incision was made with a knife and carried down through to the rectus fascia. The rectus fascia was incised with a knife and taken off the rectus muscle. The rectus muscle was in the midline. The parietal peritoneum was entered. A bladder flap was created off the lower uterine segment and incision made into the intrauterine cavity. This was vertically extended in a blunt fashion and the infant was delivered with Kiwi assistance with the findings as noted above. After 45 seconds, the cord was clamped x2, cut, and he was handed to the neonatology team in attendance. Cord blood was obtained and then the placenta was delivered manually intact and will be sent to [facility]. The uterus was left in the abdominal cavity due to the pain she has had on her right side and closed with chromic in a running interlocking fashion with a second horizontal imbricating layer. Then, irrigation was performed. Then, the rectus muscle and peritoneum were closed in a loose fashion. The fascia was closed with #1 Vicryl in a non-interlocking fashion. The subcutaneous layer was closed with 3-0 plain and the skin was closed with 4-0 Vicryl on a Michael needle. Estimated blood loss was 500. Sponge, instrument and needle count were correct. She tolerated the procedure well and went to the recovery room stable. MD FLAKITA Melton/SA , 10:32 PM , 11:01 PM
[2017-08-04] MEDS ORDERED: EPIDURAL-DIPHENHYDRAMINE HCL 50 MG/ML VIAL IV PUSH PRN (00:30)
[2017-08-04] MEDS ORDERED: EPIDURAL-DIPHENHYDRAMINE HCL 50 MG CAP PO PRN (00:30)
[2017-08-04] MEDS ORDERED: EPIDURAL-NO SYSTEMIC NARCOTICS PRN (00:30)
[2017-08-04] MEDS ORDERED: EPIDURAL-DO NOT ADMINISTER ANTICOAGULANTS PRN (00:30)
[2017-08-04] MEDS ORDERED: EPIDURAL-NALOXONE HCL 0.4 MG/ML AMP IV PUSH PRN (00:30)
[2017-08-04 00:54] VITALS: BP 127/69; PULSE 76; RESP 18; TEMP 97.8
[2017-08-04] MEDS ORDERED: LACTATED RINGER'S 1000 ML INJ 1,000 ML IV SCH (02:29)
[2017-08-04] MEDS ORDERED: OXYTOCIN 30 UNITS-500ML PREMIX 500 ML IV PRN (02:30)
[2017-08-04 04:58] VITALS: BP 116/67; PULSE 80; RESP 17; TEMP 97.9
[2017-08-04 05:52] LABS: AUTOMATED NEUTROPHIL # 11.8 TH/MM3 (1.8-7.7); BASOPHIL % 0.1 % (0.0-2.0); HEMATOCRIT 33.7 % (35.0-46.0); HEMOGLOBIN 11.6 GM/DL (11.6-15.3); LYMPHOCYTE # 0.7 TH/MM3 (1.0-4.8); MEAN CELL VOLUME 90.3 FL (80.0-100.0); MEAN CORPUSCULAR HEMOGLOBIN 31.1 PG (27.0-34.0); MEAN CORPUSCULAR HGB CONC 34.5 % (32.0-36.0); MEAN PLATELET VOLUME 9.7 FL (7.0-11.0); MONO % 3.4 % (0.0-8.0); MONOCYTE # 0.4 TH/MM3 (0-0.9); NEUT % 91.5 % (16.0-70.0); PLATELET COUNT 138 TH/MM3 (150-450); RED BLOOD COUNT 3.74 MIL/MM3 (4.00-5.30); RED CELL DISTRIBUTION WIDTH 12.4 % (11.6-17.2); WHITE BLOOD COUNT 12.9 TH/MM3 (4.0-11.0)
[2017-08-04] MEDS: DOCUSATE SODIUM 50 MG/SENNA 8.6 MG TAB PO PRN ×2 (08:13→21:49)
[2017-08-04] MEDS: oxyCODONE/ACETAMINOPHEN 5 MG/325 MG TAB PO PRN ×4 (08:14→21:50)
[2017-08-04] MEDS: IBUPROFEN 600 MG TAB PO PRN ×4 (08:14→21:49)
--- NOTE | 2017-08-04 08:35 | HHI.OB ---
Subjective Post Operative Day: 1 Remarks c/o FLORES, seen by LITIGATION COUNSEL just now Objective Vitals/I&O Vital Signs Date Time Temp Pulse Resp B/P (MAP) Pulse Ox O2 Delivery O2 Flow Rate FiO2 08/04/17 04:58 97.9 80 17 116/67 (83) 08/04/17 00:54 97.8 76 18 127/69 (88) 08/03/17 19:00 18 08/03/17 16:13 16 Intake & Output 08/04/17 08/04/17 07:00 19:00 Output Total 1950 ml Balance -1950 ml Output Urine Total 1950 ml Result Diagram: 08/04/17 0434 08/01/172019 Objective Remarks GENERAL: Well-nourished, well-developed patient. CARDIOVASCULAR: Regular rate and rhythm without murmurs, gallops, or rubs. RESPIRATORY: Breath sounds equal bilaterally. No accessory muscle use. ABDOMEN/GI: Abdomen soft, non-tender, bowel sounds present. Incision: dressing Clean, dry and intact. Fundus: Firm, non-tender at umbilicus. GENITOURINARY: Light to moderate bleeding. EXTREMITIES: No cyanosis or edema, non-tender, without signs of DVT. Medications and IVs Current Medications Medications (Trade) Dose Ordered Sig/Zach Route Start Time Stop Time Status Last Admin ([facility] No systemic narcotics to be given except... UNSCH PRN .XX 08/03/17 14:30 08/04/17 14:29 ([facility]) DO NOT ADMINISTER ANY ANTICOAGUL... UNSCH PRN .XX 08/03/17 14:30 08/04/17 14:29 Cefazolin Sodium/ Dextrose 50 ml @ 100 mls/hr DEFECTIVE CIGARETTE SLITTER IV 08/03/17 22:15 08/07/17 22:14 (Bicitra Liq) 30 ml DEFECTIVE CIGARETTE SLITTER PO 08/03/17 22:45 08/07/17 22:44 Lactated Ringer's 1,000 ml @ 100 mls/hr Q10H IV 08/04/17 02:29 08/04/17 22:28 08/04/17 00:49 Oxytocin 500 ml @ 100 mls/hr UNSCH X1 PRN IV 08/04/17 02:30 08/05/17 02:29 (NS Flush) 2 ml BID IV FLUSH 08/04/17 09:00 (NS Flush) 2 ml UNSCH PRN IV FLUSH 08/03/17 21:30 (Mylicon Chew) 80 mg QID PRN PO 08/03/17 21:30 (Tylenol) 650 mg Q6H PRN PO 08/03/17 21:30 (Motrin) 600 mg Q6H PRN PO 08/03/17 21:30 08/04/17 08:14 (Percocet 5-325 Mg) 1 tab Q4H PRN PO 08/03/17 21:30 08/04/17 08:14 (Percocet 5-325 Mg) 2 tab Q4H PRN PO 08/03/17 21:30 (Emely-Colace) 2 tab Q12H PRN PO 08/03/17 21:30 08/04/17 08:13 (Ambien) 5 mg HS PRN PO 08/03/17 21:30 (M-M-R Ii Inj) 0.5 ml ONCE ONCE SQ 08/04/17 16:00 08/04/17 16:01 (Boostrix Inj) 0.5 ml ONCE ONCE IM 08/04/17 16:00 08/04/17 16:01 (Zofran Odt) 4 mg Q6H PRN PO 08/03/17 21:45 ([facility] [facility] NO SYSTEMIC NARCOTICS TO BE GIVEN FO... UNSCH PRN .XX 08/04/17 00:30 08/05/17 00:29 (Narcan Inj) 0.4 mg UNSCH PRN IV PUSH 08/04/17 00:30 08/05/17 00:29 (Benadryl Inj) 25 mg Q6H PRN IV PUSH 08/04/17 00:30 08/05/17 00:29 (Benadryl) 50 mg Q6H PRN PO 08/04/17 00:30 08/05/17 00:29 ([facility] ALL NURSING DEPARTMENTS UNSCH PRN .XX 08/04/17 00:30 08/05/17 00:29 Assessment/Plan Problem List: (1) delivery delivered ICD Codes: O82 - Encounter for delivery without indication Assessment and Plan s/p C/S POD #1 cont routine post op care, OOB, advance diet, BP normal Discharge Planning routine Attending Attestation pt seen by Zakiya Barth MD Aug 04, 2017 08:34
[2017-08-04] MEDS ORDERED: DIPHTH/TETANUS/ACEL PERTUSSIS (BOOSTER) 0.5 ML VIAL/PFS IM ONE (16:00)
[2017-08-04] MEDS ORDERED: MEASLES, MUMPS, RUBELLA VACCINE 0.5 ML VIAL SQ ONE (16:00)
[2017-08-04] MEDS: SODIUM CHLORIDE 0.9% FLUSH 10 ML FLUSH IV FLUSH SCH (21:00)
[2017-08-04 21:07] VITALS: BP 102/62; PULSE 73; RESP 18; TEMP 98
[2017-08-05] MEDS: IBUPROFEN 600 MG TAB PO PRN ×3 (03:15→17:00)
[2017-08-05] MEDS: oxyCODONE/ACETAMINOPHEN 5 MG/325 MG TAB PO PRN ×4 (03:15→19:21)
[2017-08-05] MEDS: SODIUM CHLORIDE 0.9% FLUSH 10 ML FLUSH IV FLUSH SCH (09:00)
--- NOTE | 2017-08-05 09:44 | HHI.OB ---
Subjective Post Operative Day: 2 Remarks pt seen in NICU, FLORES resolved, has some swelling above left side of incision Objective Vitals/I&O Vital Signs Date Time Temp Pulse Resp B/P (MAP) Pulse Ox O2 Delivery O2 Flow Rate FiO2 08/04/17 21:07 98.0 73 18 102/62 (75) Result Diagram: 08/04/17 0434 08/01/172019 Objective Remarks GENERAL: Well-nourished, well-developed patient. CARDIOVASCULAR: Regular rate and rhythm without murmurs, gallops, or rubs. RESPIRATORY: Breath sounds equal bilaterally. No accessory muscle use. ABDOMEN/GI: Abdomen soft, non-tender, bowel sounds present. Incision: Clean, dry and intact. Fundus: Firm, non-tender at umbilicus. GENITOURINARY: Light to moderate bleeding. EXTREMITIES: No cyanosis or edema, non-tender, without signs of DVT. Medications and IVs Current Medications Medications (Trade) Dose Ordered Sig/Zach Route Start Time Stop Time Status Last Admin Cefazolin Sodium/ Dextrose 50 ml @ 100 mls/hr GREASE MAKER HEAD IV 08/03/17 22:15 08/07/17 22:14 (Bicitra Liq) 30 ml GREASE MAKER HEAD PO 08/03/17 22:45 08/07/17 22:44 (NS Flush) 2 ml BID IV FLUSH 08/04/17 09:00 (NS Flush) 2 ml UNSCH PRN IV FLUSH 08/03/17 21:30 (Mylicon Chew) 80 mg QID PRN PO 08/03/17 21:30 (Tylenol) 650 mg Q6H PRN PO 08/03/17 21:30 (Motrin) 600 mg Q6H PRN PO 08/03/17 21:30 08/05/17 03:15 (Percocet 5-325 Mg) 1 tab Q4H PRN PO 08/03/17 21:30 08/04/17 08:14 (Percocet 5-325 Mg) 2 tab Q4H PRN PO 08/03/17 21:30 08/05/17 03:15 (Emely-Colace) 2 tab Q12H PRN PO 08/03/17 21:30 08/04/17 21:49 (Ambien) 5 mg HS PRN PO 08/03/17 21:30 (Zofran Odt) 4 mg Q6H PRN PO 08/03/17 21:45 Assessment/Plan Problem List: (1) delivery delivered ICD Codes: O82 - Encounter for delivery without indication Assessment and Plan s/p C/S POD #2 cont routine post op care, OOB, advance diet, BP normal Discharge Planning routine Attending Attestation pt seen by Zakiya Barth MD Aug 05, 2017 09:44
[2017-08-05 16:36] LABS: AUTOMATED NEUTROPHIL # 7.8 TH/MM3 (1.8-7.7); BASOPHIL # 0.1 TH/MM3 (0-0.2); BASOPHIL % 0.6 % (0.0-2.0); EOSINOPHIL # 0.1 TH/MM3 (0-0.4); EOSINOPHIL % 0.7 % (0.0-4.0); HEMATOCRIT 31.2 % (35.0-46.0); HEMOGLOBIN 10.7 GM/DL (11.6-15.3); LYMPH % 12.4 % (9.0-44.0); LYMPHOCYTE # 1.2 TH/MM3 (1.0-4.8); MEAN CELL VOLUME 90.7 FL (80.0-100.0); MEAN CORPUSCULAR HEMOGLOBIN 31.1 PG (27.0-34.0); MEAN CORPUSCULAR HGB CONC 34.3 % (32.0-36.0); MEAN PLATELET VOLUME 9.1 FL (7.0-11.0); MONO % 3.6 % (0.0-8.0); MONOCYTE # 0.3 TH/MM3 (0-0.9); NEUT % 82.7 % (16.0-70.0); PLATELET COUNT 160 TH/MM3 (150-450); RED BLOOD COUNT 3.44 MIL/MM3 (4.00-5.30); RED CELL DISTRIBUTION WIDTH 12.9 % (11.6-17.2); WHITE BLOOD COUNT 9.4 TH/MM3 (4.0-11.0)
[2017-08-05 16:52] LABS: ALBUMIN 2.2 GM/DL (3.4-5.0); ALT (GPT) 35 U/L (10-53); AST (GOT) 55 U/L (15-37); BICARBONATE 26.9 MEQ/L (21.0-32.0); BLOOD UREA NITROGEN 5 MG/DL (7-18); CALCIUM 7.9 MG/DL (8.5-10.1); CHLORIDE 104 MEQ/L (98-107); CREATININE 0.59 MG/DL (0.50-1.00); GLOMERULAR FILTRATION RATE 112 ML/MIN (>89); GLUCOSE,RANDOM 87 MG/DL (74-106); SODIUM (NA) 141 MEQ/L (136-145)
[2017-08-05 16:54] LABS: ALKALINE PHOSPHATASE 117 U/L (45-117); TOTAL BILIRUBIN ADULT 0.2 MG/DL (0.2-1.0); TOTAL PROTEIN 5.9 GM/DL (6.4-8.2)
[2017-08-05 17:46] LABS: BACTERIA, URINE RARE /hpf; BILIRUBIN, URINE NEG (NEG); BLOOD, URINE LARGE (NEG); GLUCOSE,URINE NEG (NEG); KETONE, URINE NEG (NEG); MUCUS URINE FEW /lpf (OCC); NITRITE,URINE NEG (NEG); PH, URINE 6.5 (5.0-8.5); SQUAMOUS EPITHELIAL CELL URINE 3 /hpf (0-5); URINE COLOR LIGHT-YELLOW (YELLW/STRAW); URINE LEUKOCYTE ESTERASE MOD (NEG)
[2017-08-05] MEDS: DOCUSATE SODIUM 50 MG/SENNA 8.6 MG TAB PO PRN (19:21)
--- NOTE | 2017-08-05 19:38 | HHI.DCPOC ---
Discharge Care Plan Your Health Problems Are: Pelvic pain Report Symptoms to Your Doctor -Temperature above 100.5 degrees -Redness, of incision or excessive or foul smelling drainage -Unusual pain or calf pain -Increased vaginal bleeding -Painful or difficulty urinating -Feelings of extreme sadness or anxiety after 2 weeks Goals to Promote Your Health * To prevent worsening of your condition and complications * To maintain your health at the optimal level Directions to Meet Your Goals Take your medications as prescribed Follow your dietary instruction Follow activity as directed Ensure plenty of rest for recovery Drink fluids for hydration Keep your appointments as scheduled Take your immunizations and boosters as scheduled If your symptoms worsen call your PCP, if no PCP go to Urgent Care Center or Emergency Room Smoking is Dangerous to Your Health. Avoid second hand smoke Call the 24-hour crisis hotline for domestic abuse at Zakiya Martinez MD Aug 05, 2017 19:38
[2017-08-05] MEDS: diphenhydrAMINE HCL 25 MG CAP PO PRN (20:34)
[2017-08-06] MEDS: oxyCODONE/ACETAMINOPHEN 5 MG/325 MG TAB PO PRN ×2 (00:37→06:46)
[2017-08-06] MEDS: IBUPROFEN 600 MG TAB PO PRN ×4 (00:37→21:25)
[2017-08-06] MEDS: SODIUM CHLORIDE 0.9% FLUSH 10 ML FLUSH IV FLUSH SCH (07:14)
[2017-08-06] MEDS ORDERED: OXYC1TAB63 PO (07:30)
[2017-08-06] MEDS ORDERED: IBUP-232 PO (07:30)
--- NOTE | 2017-08-06 09:33 | HHI.OB ---
Subjective Post Operative Day: 3 Remarks FLORES only when she sits up, BP 130/80s, no BV, no CP, +flatus Objective Vitals/I&O vss afeb Result Diagram: 08/05/17 1610 08/05/17 1610 Objective Remarks GENERAL: Well-nourished, well-developed patient. CARDIOVASCULAR: Regular rate and rhythm without murmurs, gallops, or rubs. RESPIRATORY: Breath sounds equal bilaterally. No accessory muscle use. ABDOMEN/GI: Abdomen soft, non-tender, bowel sounds present. Incision: Clean, dry and intact. Fundus: Firm, non-tender at umbilicus. GENITOURINARY: Light to moderate bleeding. EXTREMITIES: No cyanosis or edema, non-tender, without signs of DVT. Medications and IVs Current Medications Medications (Trade) Dose Ordered Sig/Zach Route Start Time Stop Time Status Last Admin Cefazolin Sodium/ Dextrose 50 ml @ 100 mls/hr MAGAZINE FEEDER IV 08/03/17 22:15 08/07/17 22:14 (Bicitra Liq) 30 ml MAGAZINE FEEDER PO 08/03/17 22:45 08/07/17 22:44 (NS Flush) 2 ml BID IV FLUSH 08/04/17 09:00 (NS Flush) 2 ml UNSCH PRN IV FLUSH 08/03/17 21:30 (Mylicon Chew) 80 mg QID PRN PO 08/03/17 21:30 (Tylenol) 650 mg Q6H PRN PO 08/03/17 21:30 (Motrin) 600 mg Q6H PRN PO 08/03/17 21:30 08/06/17 06:46 (Percocet 5-325 Mg) 1 tab Q4H PRN PO 08/03/17 21:30 08/06/17 06:46 (Percocet 5-325 Mg) 2 tab Q4H PRN PO 08/03/17 21:30 08/06/17 00:37 (Emely-Colace) 2 tab Q12H PRN PO 08/03/17 21:30 08/05/17 19:21 (Ambien) 5 mg HS PRN PO 08/03/17 21:30 (Zofran Odt) 4 mg Q6H PRN PO 08/03/17 21:45 (Benadryl) 25 mg Q6H PRN PO 08/05/17 20:30 08/05/17 20:34 (Fioricet 325-50-40) 1 tab Q6H PRN PO 08/06/17 09:00 Assessment/Plan Problem List: (1) delivery delivered ICD Codes: O82 - Encounter for delivery without indication Assessment and Plan s/p C/S POD #3 cont routine post op care, OOB, advance diet, BP normal anesthesia to discuss HAs, fioricet ordered Discharge Planning routine Attending Attestation pt seen by Zakiya Barth MD Aug 06, 2017 09:33
[2017-08-06] MEDS ORDERED: oxyCODONE HCL ORAL CONC 5 MG/0.25 ML SYRINGE PO PRN (10:30)
[2017-08-06] MEDS: ACETAMIN 325 MG/BUTALBITAL 50 MG/CAFFEINE 40 MG TAB PO PRN ×2 (11:31→19:33)
[2017-08-06 12:00] VITALS: BP 130/76; TEMP 98.1
[2017-08-06] MEDS ORDERED: LIDOCAINE HCL 1% PF 5 ML AMPULE ONE (13:10)
[2017-08-06] MEDS ORDERED: STERILE WATER FOR INJECTION 20 ML VIAL ONE (13:10)
[2017-08-06 14:06] VITALS: BP 138/82; PULSE 71; RESP 16; TEMP 98.5; O2SAT 98
[2017-08-06] MEDS: PSEUDOEPHEDRINE HCL 30 MG TAB PO PRN (17:43)
[2017-08-06] MEDS: DOCUSATE SODIUM 50 MG/SENNA 8.6 MG TAB PO PRN (19:32)
[2017-08-06] MEDS: diphenhydrAMINE HCL 25 MG CAP PO PRN (21:25)
[2017-08-07] MEDS: ACETAMIN 325 MG/BUTALBITAL 50 MG/CAFFEINE 40 MG TAB PO PRN ×3 (02:01→21:40)
[2017-08-07] MEDS: PSEUDOEPHEDRINE HCL 30 MG TAB PO PRN (06:21)
[2017-08-07] MEDS: IBUPROFEN 600 MG TAB PO PRN ×3 (06:21→18:36)
--- NOTE | 2017-08-07 08:28 | HHI.OB ---
Subjective Post Operative Day: 4 Remarks headache still severe, despite a blood patch by Dr. Valdivia she is laying flat BP this am quite high: isolated vs post residual pre eclampsia pumping large quantities of milk Saloni is doing much better Objective Vitals/I&O Vital Signs Date Time Temp Pulse Resp B/P (MAP) Pulse Ox O2 Delivery O2 Flow Rate FiO2 08/06/17 14:06 98.5 71 16 138/82 (100) 98 Room Air 08/06/17 13:13 98.2 72 16 158/80 (106) 98 Room Air 08/06/17 12:00 98.1 130/76 (94) Result Diagram: 08/05/17 1610 08/05/17 1610 Objective Remarks GENERAL: Well-nourished, well-developed patient. CARDIOVASCULAR: Regular rate and rhythm without murmurs, gallops, or rubs. RESPIRATORY: Breath sounds equal bilaterally. No accessory muscle use. ABDOMEN/GI: Abdomen soft, non-tender, bowel sounds present. Incision: Clean, dry and intact. Fundus: Firm, non-tender at umbilicus. GENITOURINARY: Light to moderate bleeding. EXTREMITIES: No cyanosis or edema, non-tender, without signs of DVT. Medications and IVs Current Medications Medications (Trade) Dose Ordered Sig/Zach Route Start Time Stop Time Status Last Admin Cefazolin Sodium/ Dextrose 50 ml @ 100 mls/hr REGISTERED DENTAL HYGIENIST IV 08/03/17 22:15 08/07/17 22:14 (Bicitra Liq) 30 ml REGISTERED DENTAL HYGIENIST PO 08/03/17 22:45 08/07/17 22:44 (NS Flush) 2 ml BID IV FLUSH 08/04/17 09:00 (NS Flush) 2 ml UNSCH PRN IV FLUSH 08/03/17 21:30 (Mylicon Chew) 80 mg QID PRN PO 08/03/17 21:30 (Tylenol) 650 mg Q6H PRN PO 08/03/17 21:30 (Motrin) 600 mg Q6H PRN PO 08/03/17 21:30 08/07/17 06:21 (Emely-Colace) 2 tab Q12H PRN PO 08/03/17 21:30 08/06/17 19:32 (Ambien) 5 mg HS PRN PO 08/03/17 21:30 (Zofran Odt) 4 mg Q6H PRN PO 08/03/17 21:45 (Benadryl) 25 mg Q6H PRN PO 08/05/17 20:30 08/06/17 21:25 (Fioricet 325-50-40) 1 tab Q6H PRN PO 08/06/17 09:00 08/07/17 02:01 (Roxicodone Intensol Liq) 5 mg Q4H PRN PO 08/06/17 10:30 (Roxicodone) 10 mg Q4H PRN PO 08/06/17 10:30 (Sudafed) 30 mg Q6H PRN PO 08/06/17 17:00 08/07/17 06:21 Assessment/Plan Problem List: (1) delivery delivered ICD Codes: O82 - Encounter for delivery without indication Assessment and Plan s/p C/S POD #3 cont routine post op care, OOB, advance diet, BP normal anesthesia to discuss HAs, fioricet ordered 08/07/17 Persistent severe headache--either wet tap related or residual pre eclampsia trial of diamox see if can get Clau for massage flexeril continue fioricet Discharge Planning routine Jahaira Meadows MD Aug 07, 2017 08:28
[2017-08-07] MEDS: acetaZOLAMIDE 250 MG TAB PO SCH ×2 (10:13→21:39)
[2017-08-07 13:08] LABS: AUTOMATED NEUTROPHIL # 4.4 TH/MM3 (1.8-7.7); BASOPHIL % 0.4 % (0.0-2.0); EOSINOPHIL # 0.1 TH/MM3 (0-0.4); EOSINOPHIL % 1.4 % (0.0-4.0); HEMATOCRIT 31.6 % (35.0-46.0); HEMOGLOBIN 10.6 GM/DL (11.6-15.3); LYMPH % 18.1 % (9.0-44.0); MEAN CELL VOLUME 92.7 FL (80.0-100.0); MEAN CORPUSCULAR HEMOGLOBIN 31.1 PG (27.0-34.0); MEAN CORPUSCULAR HGB CONC 33.5 % (32.0-36.0); MEAN PLATELET VOLUME 8.7 FL (7.0-11.0); MONO % 3.9 % (0.0-8.0); MONOCYTE # 0.2 TH/MM3 (0-0.9); NEUT % 76.2 % (16.0-70.0); PLATELET COUNT 209 TH/MM3 (150-450); RED BLOOD COUNT 3.41 MIL/MM3 (4.00-5.30); RED CELL DISTRIBUTION WIDTH 12.7 % (11.6-17.2); WHITE BLOOD COUNT 5.7 TH/MM3 (4.0-11.0)
[2017-08-07 13:40] LABS: ALBUMIN 2.4 GM/DL (3.4-5.0); DIRECT BILIRUBIN ADULT 0.1 MG/DL (0.0-0.2); INDIRECT BILIRUBIN 0.2 MG/DL (0.0-0.8); TOTAL BILIRUBIN ADULT 0.3 MG/DL (0.2-1.0); TOTAL PROTEIN 6.4 GM/DL (6.4-8.2)
[2017-08-07] MEDS ORDERED: LABETALOL HCL 100 MG TAB PO ONE (14:30)
[2017-08-07] MEDS: CYCLOBENZAPRINE HCL 10 MG TAB PO SCH ×2 (14:39→21:40)
--- NOTE | 2017-08-07 15:25 | MB ---
cc: Gonzalo Livingston MD, PhD DATE: 08/07/2017 REASON FOR CONSULTATION: Headache. HISTORY OF PRESENT ILLNESS: Ms. Aguilar is a pleasant 42-year-old female status post delivery of her child by last . She began to experience a headache at that time and now has a persistent headache which is positional in nature. If she lays supine, she has no headache. If she sits up or stands up, she experiences a headache diffusely as well as pain around the orbits. She also will get neck pain and trapezius pain as well, which can be severe at times. She has no associated neurological symptoms. If she lays supine the headache completely resolves. She did undergo a blood patch procedure yesterday; however, this did not seem to help the headache. She has no prior history of headache. PHYSICAL EXAMINATION: VITAL SIGNS: Blood pressure 138/82, pulse 71, respiratory rate is 16, temperature is 98.5 degrees. NEUROLOGICAL EXAMINATION: Higher cortical functions normal. Cranial nerves intact. Neck is supple with no meningismus. On motor exam she has no focal deficits. Normal strength and tone in all groups. LABORATORY DATA: The white count is 5700, hemoglobin 10.6, hematocrit 31.6%, platelet count 209,000. Sodium 141, potassium 3.2, chloride 104, CO2 of 26.9. The BUN is 5, creatinine 0.59, GFR is 112, AST 55, ALT is 35, alkaline phosphatase 117. IMPRESSION: Probable post-lumbar puncture headache. RECOMMENDATIONS: We will get a CT of the brain and cervical spine to rule out other etiologies. For now, recommend strict bedrest, also push p.o. fluids and caffeinated fluids. If no improvement in the next day or so, consider repeat blood patch. Gonzalo Livingston MD, PhD ROSALIA/VANE , 03:12 PM , 03:24 PM
[2017-08-07] MEDS: SODIUM CHLORIDE 0.9% FLUSH 10 ML FLUSH IV FLUSH SCH (20:11)
--- NOTE | 2017-08-07 20:13 | RADRPT ---
EXAM DATE: 08/07/2017 7:18 PM EDT AGE/SEX: 42 years / Female INDICATIONS: Kamille phagia and neck stiffness post epidural. CLINICAL DATA: This is the patient's initial encounter. Patient reports that signs and symptoms have been present for 1 day and indicates a pain score of 5/10. MEDICAL/SURGICAL HISTORY: None. None. RADIATION DOSE: 19.91 CTDI (mGy) COMPARISON: No prior [place] exams available for comparison. TECHNIQUE: Contiguous axial images were obtained using helical multirow detector technique. The vol umetric data was post-processed with multiplanar reconstruction in oblique axial, sagittal, and coron al planes. Using automated exposure control and adjustment of the mA and/or kV according to patient s ize, radiation dose was kept as low as reasonably achievable to obtain optimal diagnostic quality gricelda ges. FINDINGS: No acute fracture or spondylolisthesis. No prevertebral soft tissue swelling. No bony canal or bony f oraminal stenosis. CONCLUSION: 1. No acute findings. Electronically signed by: Alexander Blue MD 08/07/2017 8:12 PM EDT
--- NOTE | 2017-08-07 20:16 | RADRPT ---
EXAM DATE: 08/07/2017 7:10 PM EDT AGE/SEX: 42 years / Female INDICATIONS: Kamille phagia and neck stiffness post epidural. CLINICAL DATA: This is the patient's initial encounter. Patient reports that signs and symptoms have been present for 1 day and indicates a pain score of 5/10. MEDICAL/SURGICAL HISTORY: None. None. RADIATION DOSE: 56.35 CTDI (mGy) COMPARISON: No prior [place] exams available for comparison. TECHNIQUE: CT of the head without contrast. Using automated exposure control and adjustment of the mA and/or kV according to patient size, radiation dose was kept as low as reasonably achievable to ob tain optimal diagnostic quality images. FINDINGS: Cerebrum: The ventricles are normal for age. No evidence of midline shift, mass lesion, hemorrhage or acute infarction. No extraaxial fluid collections are seen. Posterior Fossa: The cerebellum and brainstem are intact. The 4th ventricle is midline. The cerebe llopontine angle is unremarkable. Extracranial: The visualized portion of the orbits is intact. Skull: The calvaria is intact. No evidence of skull fracture. CONCLUSION: 1. No acute intracranial abnormalities. Electronically signed by: Alexander Blue MD 08/07/2017 8:14 PM EDT
[2017-08-07] MEDS: LABETALOL HCL 100 MG TAB PO SCH (21:40)
[2017-08-08] MEDS: IBUPROFEN 600 MG TAB PO PRN ×4 (01:04→21:08)
[2017-08-08 06:01] LABS: AUTOMATED NEUTROPHIL # 4.3 TH/MM3 (1.8-7.7); BASOPHIL % 0.5 % (0.0-2.0); EOSINOPHIL # 0.2 TH/MM3 (0-0.4); EOSINOPHIL % 2.6 % (0.0-4.0); HEMATOCRIT 31.4 % (35.0-46.0); HEMOGLOBIN 10.5 GM/DL (11.6-15.3); LYMPH % 22.3 % (9.0-44.0); LYMPHOCYTE # 1.4 TH/MM3 (1.0-4.8); MEAN CELL VOLUME 91.5 FL (80.0-100.0); MEAN CORPUSCULAR HEMOGLOBIN 30.7 PG (27.0-34.0); MEAN CORPUSCULAR HGB CONC 33.5 % (32.0-36.0); MEAN PLATELET VOLUME 8.4 FL (7.0-11.0); MONO % 5.7 % (0.0-8.0); MONOCYTE # 0.4 TH/MM3 (0-0.9); NEUT % 68.9 % (16.0-70.0); PLATELET COUNT 216 TH/MM3 (150-450); RED BLOOD COUNT 3.43 MIL/MM3 (4.00-5.30); RED CELL DISTRIBUTION WIDTH 12.3 % (11.6-17.2); WHITE BLOOD COUNT 6.2 TH/MM3 (4.0-11.0)
[2017-08-08] MEDS: ACETAMIN 325 MG/BUTALBITAL 50 MG/CAFFEINE 40 MG TAB PO PRN ×3 (06:07→21:09)
[2017-08-08] MEDS: CYCLOBENZAPRINE HCL 10 MG TAB PO SCH ×3 (06:07→22:35)
[2017-08-08 06:42] LABS: ALBUMIN 2.4 GM/DL (3.4-5.0); ALKALINE PHOSPHATASE 151 U/L (45-117); ALT (GPT) 84 U/L (10-53); AST (GOT) 61 U/L (15-37); BLOOD UREA NITROGEN 7 MG/DL (7-18); CALCIUM 8.6 MG/DL (8.5-10.1); CHLORIDE 114 MEQ/L (98-107); CREATININE 0.64 MG/DL (0.50-1.00); GLOMERULAR FILTRATION RATE 102 ML/MIN (>89); GLUCOSE,RANDOM 85 MG/DL (74-106); SODIUM (NA) 142 MEQ/L (136-145); TOTAL BILIRUBIN ADULT 0.2 MG/DL (0.2-1.0); TOTAL PROTEIN 6.3 GM/DL (6.4-8.2)
--- NOTE | 2017-08-08 08:37 | HHI.OB ---
Subjective Post Operative Day: 5 Remarks yesterday's LFTs considerably higher than on Monday, consistent with a post delay in resolution of pre eclampsia the increased BP may have had something to do with the wet tap or the difficulty in resolving the spinal FLORES? States it is still 10/10 when ambulating, but walks and does her daily ADLs. Pumping very well Saloni is doing well and should be able to go home today or tomorrow and needs circ Objective Result Diagram: 08/08/17 0509 08/08/17 0509 Objective Remarks GENERAL: Well-nourished, well-developed patient. CARDIOVASCULAR: Regular rate and rhythm without murmurs, gallops, or rubs. RESPIRATORY: Breath sounds equal bilaterally. No accessory muscle use. ABDOMEN/GI: Abdomen soft, non-tender, bowel sounds present. Incision: Clean, dry and intact. Fundus: Firm, non-tender at umbilicus. GENITOURINARY: Light to moderate bleeding. EXTREMITIES: No cyanosis or edema, non-tender, without signs of DVT. Medications and IVs Current Medications Medications (Trade) Dose Ordered Sig/Zahc Route Start Time Stop Time Status Last Admin (NS Flush) 2 ml BID IV FLUSH 08/04/17 09:00 (NS Flush) 2 ml UNSCH PRN IV FLUSH 08/03/17 21:30 (Mylicon Chew) 80 mg QID PRN PO 08/03/17 21:30 (Tylenol) 650 mg Q6H PRN PO 08/03/17 21:30 (Motrin) 600 mg Q6H PRN PO 08/03/17 21:30 08/08/17 01:04 (Emely-Colace) 2 tab Q12H PRN PO 08/03/17 21:30 08/06/17 19:32 (Ambien) 5 mg HS PRN PO 08/03/17 21:30 (Zofran Odt) 4 mg Q6H PRN PO 08/03/17 21:45 (Benadryl) 25 mg Q6H PRN PO 08/05/17 20:30 08/06/17 21:25 (Fioricet 325-50-40) 1 tab Q6H PRN PO 08/06/17 09:00 08/08/17 06:07 (Roxicodone Intensol Liq) 5 mg Q4H PRN PO 08/06/17 10:30 (Roxicodone) 10 mg Q4H PRN PO 08/06/17 10:30 (Sudafed) 30 mg Q6H PRN PO 08/06/17 17:00 08/07/17 06:21 (Flexeril) 10 mg Q8HR PO 08/07/17 14:00 08/08/17 06:07 (Trandate) 100 mg BID PO 08/07/17 21:00 08/07/17 21:40 Assessment/Plan Problem List: (1) delivery delivered ICD Codes: O82 - Encounter for delivery without indication Assessment and Plan s/p C/S POD #3 cont routine post op care, OOB, advance diet, BP normal anesthesia to discuss HAs, fioricet ordered 08/07/17 Persistent severe headache--either wet tap related or residual pre eclampsia trial of diamox see if can get Clau for massage flexeril continue fioricet POD #5 BPs better LFTs trending down incision healed nursing and pumping well will try klonopin for anxiety component and see if perception of FLORES improves. hopeful discharge today or tomorrow Discharge Planning routine Jahaira Meadows MD Aug 08, 2017 08:37
[2017-08-08] MEDS: LABETALOL HCL 100 MG TAB PO SCH ×2 (09:27→21:08)
[2017-08-08] MEDS: clonazePAM 0.5 MG TAB PO SCH ×2 (09:27→16:54)
[2017-08-08] MEDS: PSEUDOEPHEDRINE HCL 30 MG TAB PO PRN ×3 (10:55→22:35)
[2017-08-08] MEDS: SODIUM CHLORIDE 0.9% FLUSH 10 ML FLUSH IV FLUSH SCH (19:56)
[2017-08-09] MEDS: clonazePAM 0.5 MG TAB PO SCH ×2 (01:00→09:33)
[2017-08-09] MEDS: ACETAMIN 325 MG/BUTALBITAL 50 MG/CAFFEINE 40 MG TAB PO PRN (03:30)
[2017-08-09] MEDS: IBUPROFEN 600 MG TAB PO PRN ×3 (03:30→15:38)
[2017-08-09] MEDS: PSEUDOEPHEDRINE HCL 30 MG TAB PO PRN (06:00)
[2017-08-09] MEDS: CYCLOBENZAPRINE HCL 10 MG TAB PO SCH ×2 (06:00→14:05)
--- NOTE | 2017-08-09 08:32 | HHI.OB ---
Subjective Post Operative Day: 6 Remarks headache has resolved entirely can sit up and ambulate nursing well minimal lochia Objective Result Diagram: 08/08/17 0509 08/08/17 0509 Objective Remarks GENERAL: Well-nourished, well-developed patient. CARDIOVASCULAR: Regular rate and rhythm without murmurs, gallops, or rubs. RESPIRATORY: Breath sounds equal bilaterally. No accessory muscle use. ABDOMEN/GI: Abdomen soft, non-tender, bowel sounds present. Incision: Clean, dry and intact. Fundus: Firm, non-tender at umbilicus. GENITOURINARY: Light to moderate bleeding. EXTREMITIES: No cyanosis or edema, non-tender, without signs of DVT. Medications and IVs Current Medications Medications (Trade) Dose Ordered Sig/Zach Route Start Time Stop Time Status Last Admin (NS Flush) 2 ml BID IV FLUSH 08/04/17 09:00 (NS Flush) 2 ml UNSCH PRN IV FLUSH 08/03/17 21:30 (Mylicon Chew) 80 mg QID PRN PO 08/03/17 21:30 (Tylenol) 650 mg Q6H PRN PO 08/03/17 21:30 (Motrin) 600 mg Q6H PRN PO 08/03/17 21:30 08/09/17 03:30 (Emely-Colace) 2 tab Q12H PRN PO 08/03/17 21:30 08/06/17 19:32 (Ambien) 5 mg HS PRN PO 08/03/17 21:30 (Zofran Odt) 4 mg Q6H PRN PO 08/03/17 21:45 (Benadryl) 25 mg Q6H PRN PO 08/05/17 20:30 08/06/17 21:25 (Roxicodone Intensol Liq) 5 mg Q4H PRN PO 08/06/17 10:30 (Roxicodone) 10 mg Q4H PRN PO 08/06/17 10:30 (Sudafed) 30 mg Q6H PRN PO 08/06/17 17:00 08/09/17 06:00 (Flexeril) 10 mg Q8HR PO 08/07/17 14:00 08/09/17 06:00 (Trandate) 100 mg BID PO 08/07/17 21:00 08/08/17 21:08 (Fioricet 325-50-40) 2 tab Q6H PRN PO 08/08/17 09:00 08/09/17 03:30 (KlonoPIN) 0.5 mg Q8H PO 08/08/17 09:00 08/09/17 01:00 Assessment/Plan Problem List: (1) delivery delivered ICD Codes: O82 - Encounter for delivery without indication Assessment and Plan 08/06/17 cont routine post op care, OOB, advance diet, BP normal anesthesia to discuss HAs, fioricet ordered 08/07/17 Persistent severe headache--either wet tap related or residual pre eclampsia trial of diamox see if can get Clau for massage flexeril continue fioricet 08/08/17 POD #5 BPs better LFTs trending down incision healed nursing and pumping well will try klonopin for anxiety component and see if perception of FLORES improves. hopeful discharge today or tomorrow 08/09/17 POD #6 Stable with resolution of post pre eclampsia and spinal headache ready for discharge RTO 1 week Discharge Planning routine Jahaira Meadows MD Aug 09, 2017 08:32
[2017-08-09] MEDS ORDERED: OXYC-392 PO (08:35)
[2017-08-09] MEDS ORDERED: Acet-Butal-Caff 325-50-40 Mg PO (08:35)
[2017-08-09] MEDS ORDERED: CLON.5 PO (08:35)
[2017-08-09] MEDS: SODIUM CHLORIDE 0.9% FLUSH 10 ML FLUSH IV FLUSH SCH (09:00)
[2017-08-09] MEDS: LABETALOL HCL 100 MG TAB PO SCH (09:33)
== END 2017-08-09 16:06 | disposition home or self-care (01) | DRG 766 ==
LOC: H2EA 18:00 → H1EA 08-04 00:02
PROVIDERS: ADMIT Obstetrics & Gynecology; ATTEND Obstetrics & Gynecology
PROC: 00HU33Z Insertion of Infusion Device into Spinal Canal, Percutaneous Approach (ICD-10-PCS; principal; 2017-08-01)
PROC: 3E0R3BZ Introduction of Anesthetic Agent into Spinal Canal, Percutaneous Approach (ICD-10-PCS; 2017-08-01)
PROC: 10D00Z1 Extraction of Products of Conception, Low, Open Approach (ICD-10-PCS; 2017-08-03)
PROC: 3E0R3GC Introduction of Other Therapeutic Substance into Spinal Canal, Percutaneous Approach (ICD-10-PCS; 2017-08-06)
DX: O14.94 Unspecified pre-eclampsia, complicating childbirth (principal); F41.9 Anxiety disorder, unspecified; O32.4XX0 Maternal care for high head at term, not applicable or unspecified; Z37.0 Single live birth; Z3A.36 36 weeks gestation of pregnancy; G97.1 Other reaction to spinal and lumbar puncture; Y84.4 Aspiration of fluid as the cause of abnormal reaction of the patient, or of later complication, without mention of misadventure at the time of the procedure; Y92.239 Unspecified place in hospital as the place of occurrence of the external cause; O99.345 Other mental disorders complicating the puerperium
CPT/HCPCS: 59025; 70450; 72125; 80053; 80076; 80307; 81001; 84550; 85025; 86900; 86901; 87086; 90715; G0481; J0131; J0690; J1100; J2274; J2370; J2405; J2590; J3010; J7120